=== PATIENT | male | born 1950 | race Caucasian/White ===

== ENCOUNTER → 2021-01-27 | Outpatient (CLI) | payer MEDICARE, OTHER | LOC: HEART 5 07:36 | DX: R07.89 Other chest pain (principal); I08.3 Combined rheumatic disorders of mitral, aortic and tricuspid valves; I27.20 Pulmonary hypertension, unspecified | CPT/HCPCS: 78452; 93306; A9502; J2785 ==

== ENCOUNTER → 2021-11-23 | Outpatient (CLI) | payer MEDICARE, OTHER | LOC: KOH-I 12:08 | DX: R05.9 Cough, unspecified (principal); J81.1 Chronic pulmonary edema; J40 Bronchitis, not specified as acute or chronic | CPT/HCPCS: 71046 ==

== ENCOUNTER → 2021-11-27 | Outpatient (CLI) | payer MEDICARE, OTHER | LOC: KOH-I 11:08 | DX: M54.50 Low back pain, unspecified (principal); M47.816 Spondylosis without myelopathy or radiculopathy, lumbar region; M47.817 Spondylosis without myelopathy or radiculopathy, lumbosacral region; N20.0 Calculus of kidney | CPT/HCPCS: 72110 ==

== ENCOUNTER → 2021-12-03 | Outpatient (CLI) | payer MEDICARE, OTHER | LOC: CT 10:31 | DX: R63.4 Abnormal weight loss (principal); N20.0 Calculus of kidney | CPT/HCPCS: 36415; 82565; 84520; Q9967 ==

== ENCOUNTER → 2022-01-13 | Outpatient (CLI) | payer MEDICARE, OTHER | LOC: KOH-I 10:12 | DX: M79.672 Pain in left foot (principal) | CPT/HCPCS: 73630 ==